=== PATIENT | male | born 1970 | race Caucasian/White ===

== ENCOUNTER 2023-02-16 00:33 | Day surgery (SDC) | payer OTHER, SELFPAY ==
[2023-02-03 16:05] VITALS: BMI 34.7
[2023-02-16 06:44] VITALS: BP 170/100; PULSE 88; RESP 20; TEMP 36.2; O2SAT 99
[2023-02-16] MEDS: LACTATED RINGERS 1,000 ML 150 ML IV CONT (06:52)
--- NOTE | 2023-02-16 08:04 | PM.HPGS ---
History of Present Illness History of Present Illness Consent: Risks, benefits, and alternatives have been discussed and questions answered. Patient agrees to proceed with procedure. Chief complaint: family hx colon ca Narrative: Reggie Tinoco is a 52 year old male here for first screening colonoscopy Review of Systems Constitutional: Constitutional: Denies headache(s) and Denies weakness Eyes: Eyes: Denies blurry vision ENT: Reports Normal hearing present, Denies headache(s) and Denies neck pain Cardiovascular: Cardiovascular: Denies chest pain and Denies dyspnea Respiratory: Respiratory: Denies dyspnea Gastrointestinal: Gastrointestinal: Reports no additional gastrointestinal complaints Genitourinary: Genitourinary: Denies dysuria Musculoskeletal: Musculoskeletal: Denies neck pain Integumentary/Breasts: Skin/Breast: Denies dry skin Neurologic: Reports Normal hearing present, Denies headache(s) and Denies weakness Psychiatric: Psychiatric: Denies anxiety Endocrine: Endocrine: Denies change in body appearance Hematologic/Lymphatic: Hematologic/Lymphatic: Denies easy bleeding Allergic/Immunologic: Allergic/Immunologic: Denies urticaria PMF Past Medical History Medical History (Updated 02/16/23 @ 08:05 by Dewey Oliver MD) Chest pain Colon cancer screening COPD (chronic obstructive pulmonary disease) Depression Hyperlipidemia Hypertension Surgical History Surgical History History of carpal tunnel surgery Family History Family History Sibling Hypertension Depression Grandparent Hypertension Heart disease Social History Social History (Updated 12/22/22 @ 13:25 by YELENA Staton) Smoking status: Former smoker Tobacco type: cigarettes Smoking end date: 04/15/22 Alcohol intake: never Substance use: never Substance use type: does not use Living arrangements: with family 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[employer] Spiritual care concerns: No Agree to blood products: Yes Meds Home Medications and Allergies Home Medications Medication Instructions Recorded Confirmed Type albuterol sulfate 90 mcg/actuation 1 inh inhalation Q4H PRN shortness 04/23/22 02/03/23 Rx aerosol inhaler of breath or wheezing #6.7 grams hydrochlorothiazide 12.5 mg tablet 12.5 mg PO DAILY #90 tabs 12/15/22 02/03/23 Rx diltiazem HCl 360 mg capsule,24 360 mg PO DAILY #90 caps 12/22/22 02/03/23 Rx hr,extended release Allergies Allergy/AdvReac Type Severity Reaction Status Date / Time No Known Allergies Allergy Verified 02/16/23 06:43 Vital Signs Vital Signs - 24 hr 02/16/23 06:44 Temperature 97.2 F L Pulse Rate 88 Respiratory Rate 20 Blood Pressure 170/100 H Pulse Oximetry 99 Oxygen Delivery Room Air Exam Const: General: comfortable and no acute distress HENMT: Face/Nose/Sinus: Normal nares present Eyes: General: appearance normal, both eyes and all related structures Neck: Neck: no JVD Resp: Auscultation: clear to auscultation bilaterally Cardio: Rate: regular rate Rhythm: regular rhythm GI: Inspection: non-distended GI Palp: Yes Soft to palpation Skin: General skin exam: normal color Neuro: General: gait normal Speech: normal speech Extrem: General: normal to inspection Psych: Mental Status: mental status grossly normal Assessment and Plan Assessment and plan (1) Colon cancer screening: Code(s): Z12.11 - Encounter for screening for malignant neoplasm of colon Status: Acute Assessment and Plan: colonoscopy
--- NOTE | 2023-02-16 08:06 | P.PNAN_ITS ---
Anes - Initial Pre Proc Eval Procedure: Operation Date: 02/16/23 08:15 Proposed Procedures p Colonoscopy - Dewey Oliver MD Date/Time: 02/16/23 08:06 Surgeon: Dewey Oliver MD Pre Op Diagnosis: family hx colon ca Patient Data Age: 52 Gender: M Height: 1.88 m Weight: 122.9 kg Last Vital Signs Temp 97.2 F L 02/16/23 06:44 Pulse 88 02/16/23 06:44 Resp 20 02/16/23 06:44 BP 170/100 H 02/16/23 06:44 Pulse Ox 99 02/16/23 06:44 O2 Del Method Room Air 02/16/23 06:44 Allergies Allergy/AdvReac Type Severity Reaction Status Date / Time No Known Allergies Allergy Verified 02/16/23 06:43 Home Medications Medication Instructions Recorded Confirmed Type albuterol sulfate 90 mcg/actuation 1 inh inhalation Q4H PRN shortness 04/23/22 02/03/23 Rx aerosol inhaler of breath or wheezing #6.7 grams hydrochlorothiazide 12.5 mg tablet 12.5 mg PO DAILY #90 tabs 12/15/22 02/03/23 Rx diltiazem HCl 360 mg capsule,24 360 mg PO DAILY #90 caps 12/22/22 02/03/23 Rx hr,extended release Patient hx anesthesia problems: none Family hx anesthesia problems: none Results Review: All pre-operative results and documents have been reviewed as part of the pre- operative evaluation. [facility] Past Medical History Medical History (Updated 02/16/23 @ 08:05 by Dewey Oliver MD) Chest pain Colon cancer screening COPD (chronic obstructive pulmonary disease) Depression Hyperlipidemia Hypertension Surgical History Surgical History History of carpal tunnel surgery Family History Family History Sibling Hypertension Depression Grandparent Hypertension Heart disease Social History Social History (Updated 12/22/22 @ 13:25 by YELENA Staton) Smoking status: Former smoker Tobacco type: cigarettes Smoking end date: 04/15/22 Alcohol intake: never Substance use: never Substance use type: does not use Living arrangements: with family 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 Informed Consent: The patient's anesthetic plan and its attendant risks and benefits were discussed with the patient/family/POA. Questions were solicited and answers provided to the satisfaction of the patient/family/POA.
[2023-02-16 08:31] VITALS: BP 131/84; PULSE 86; RESP 25; O2SAT 95
[2023-02-16 08:41] VITALS: BP 132/94; PULSE 85; RESP 17; O2SAT 97
[2023-02-16 08:50] VITALS: BP 139/94; PULSE 70; RESP 18; O2SAT 96
== END 2023-02-16 08:57 | disposition home or self-care (01) ==
PROVIDERS: PCP Family Medicine; Visit Provider Internal Medicine Gastroenterology
PROC: 0DJD8ZZ Inspection of Lower Intestinal Tract, Via Natural or Artificial Opening Endoscopic (ICD-10-PCS; CPT 45378; principal; 2023-02-16 08:15)
DX: Z12.11 Encounter for screening for malignant neoplasm of colon (principal); K57.30 Diverticulosis of large intestine without perforation or abscess without bleeding; K64.8 Other hemorrhoids; Z80.0 Family history of malignant neoplasm of digestive organs; J44.9 Chronic obstructive pulmonary disease, unspecified; I10 Essential (primary) hypertension; E78.5 Hyperlipidemia, unspecified; Z79.51 Long term (current) use of inhaled steroids; Z87.891 Personal history of nicotine dependence; E66.9 Obesity, unspecified; Z68.34 Body mass index [BMI] 34.0-34.9, adult
CPT/HCPCS: 45378; J2704; J7120